=== PATIENT | male | born 1960 | race Caucasian/White ===

== ENCOUNTER 2019-07-27 16:12 | Emergency (ER) | payer SELFPAY ==
[2019-07-27] MEDS ORDERED: NA CHLORIDE 0.9% 1,000 ML ONE ×2 (16:57→17:10)
[2019-07-27 17:16] LABS: Absolute Lymphocytes (CBC) 1.3 K/uL (0.7-4.9); Basophils % 0.5 % (0-1.3); Hematocrit 40.4 % (39.6-49.0); Lymphocytes % 15.8 % (15.3-44.8); MPV 7.8 fL (7.6-11.3); RBC Red Blood Cell Count 4.56 M/uL (4.33-5.43)
[2019-07-27 17:41] LABS: ALT/SGPT 30 U/L (12-78); AST/SGOT 22 U/L (15-37); Albumin 3.4 g/dL (3.4-5.0); Alkaline Phosphatase 108 U/L (45-117); BUN Blood Urea Nitrogen 10 mg/dL (7-18); Bicarbonate 28 mmol/L (21-32); Bilirubin Direct 0.1 mg/dL (0-0.2); Bilirubin Total 0.3 mg/dL (0.2-1.0); Glucose Level 215 mg/dL (74-106); Lipase 100 U/L (73-393); Potassium 3.8 mmol/L (3.5-5.1); Protein, Total 7.3 g/dL (6.4-8.2); Sodium Level 135 mmol/L (136-145)
[2019-07-27] MEDS ORDERED: FENTANYL CITR 100 MCG/2 ML ONE (18:28)
--- NOTE | 2019-07-27 18:38 | RAD REPORT ---
EXAM DESCRIPTION: US - Abdomen Exam Limited - 07/27/2019 5:38 pm CLINICAL HISTORY: Abdominal pain. FINDINGS: The gallbladder wall is not thickened. A gallstone is not seen. The biliary tree is normal caliber. IMPRESSION: Unremarkable gallbladder ultrasound.
--- NOTE | 2019-07-27 18:38 | RAD REPORT ---
EXAM DESCRIPTION: CT - Abdomen W Contrast - 07/27/2019 6:17 pm CLINICAL HISTORY: Abdominal pain COMPARISON: None TECHNIQUE: Computed axial tomography from the diaphragm to the iliac crest was obtained. Oral contra st was given. 100 cc Isovue-[address] scans are performed using dose optimization technique as appropriate and may include automated exposure control or mA/KV adjustment according to patient size. FINDINGS:. The liver, spleen, adrenals, pancreas and kidneys appear unremarkable Mild to moderate thickening of the a stone colon is present with stranding in the adjacent fat Normal appendix No ascites IMPRESSION: Mild to moderate thickening of the wall of the ascending colon probably a colitis
--- NOTE | 2019-07-27 18:44 | EDPHYS ---
Physician Documentation [facility] Name: Spencer Murillo Age: 58 yrs Sex: Male : 1960 Arrival Date: 07/27/2019 Time: 16:14 Bed 6 Private MD: ED Physician Chepe Ramsey HPI: 07/27 17:07 This 58 yrs old Male presents to ER via Ambulatory with complaints of snw Abdominal Pain. 17:07 The patient presents with abdominal pain abdominal distention. Onset: The snw symptoms/episode began/occurred suddenly, 5 day(s) ago, and became persistent. The symptoms do not radiate. Associated signs and symptoms: Pertinent positives: nausea and vomiting, anorexia. The symptoms are described as sharp, steady. Severity of pain: At its worst the pain was moderate. The patient has not experienced similar symptoms in the past. The patient has not recently seen a physician. Historical: - Allergies: 16:28 Levaquin; hb - Home Meds: 16:28 None [Active]; hb - PMHx: 16:28 ADD/ADHD; hb - PSHx: 16:28 Knee surgery; L shoulder; hb - Immunization history:: Adult Immunizations up to date. - Social history:: Smoking status: Patient uses tobacco products, denies chronic smoking, but will smoke occasionally. - Ebola Screening: : No symptoms or risks identified at this time. ROS: 17:06 Constitutional: Negative for fever, chills, and weight loss, Eyes: Negative for injury, snw pain, redness, and discharge, ENT: Negative for injury, pain, and discharge, Neck: Negative for injury, pain, and swelling, Cardiovascular: Negative for chest pain, palpitations, and edema, Respiratory: Negative for shortness of breath, cough, wheezing, and pleuritic chest pain, Back: Negative for injury and pain, : Negative for injury, bleeding, discharge, and swelling, MS/Extremity: Negative for injury and deformity, Skin: Negative for injury, rash, and discoloration, Neuro: Negative for headache, weakness, numbness, tingling, and seizure, Psych: Negative for depression, anxiety, suicide ideation, homicidal ideation, and hallucinations. 17:06 Abdomen/GI: Positive for abdominal pain, nausea and vomiting. Exam: 17:05 Constitutional: This is a well developed, well nourished patient who is awake, alert, snw and in no acute distress. Head/Face: Normocephalic, atraumatic. Eyes: Pupils equal round and reactive to light, extra-ocular motions intact. Lids and lashes normal. Conjunctiva and sclera are non-icteric and not injected. Cornea within normal limits. Periorbital areas with no swelling, redness, or edema. ENT: Nares patent. No nasal discharge, no septal abnormalities noted. Tympanic membranes are normal and external auditory canals are clear. Oropharynx with no redness, swelling, or masses, exudates, or evidence of obstruction, uvula midline. Mucous membranes moist. Neck: Trachea midline, no thyromegaly or masses palpated, and no cervical lymphadenopathy. Supple, full range of motion without nuchal rigidity, or vertebral point tenderness. No Meningismus. Chest/axilla: Normal chest wall appearance and motion. Nontender with no deformity. No lesions are appreciated. Cardiovascular: Regular rate and rhythm with a normal S1 and S2. No gallops, murmurs, or rubs. Normal PMI, no JVD. No pulse deficits. Respiratory: Lungs have equal breath sounds bilaterally, clear to auscultation and percussion. No rales, rhonchi or wheezes noted. No increased work of breathing, no retractions or nasal flaring. Back: No spinal tenderness. No costovertebral tenderness. Full range of motion. Skin: Warm, dry with normal turgor. Normal color with no rashes, no lesions, and no evidence of cellulitis. MS/ Extremity: Pulses equal, no cyanosis. Neurovascular intact. Full, normal range of motion. Neuro: Awake and alert, GCS 15, oriented to person, place, time, and situation. Cranial nerves II-XII grossly intact. Motor strength 5/5 in all extremities. Sensory grossly intact. Cerebellar exam normal. Normal gait. Psych: Awake, alert, with orientation to person, place and time. Behavior, mood, and affect are within normal limits. 17:05 Abdomen/GI: Inspection: distension, that is mild, Bowel sounds: normal, Palpation: moderate abdominal tenderness, in the right upper quadrant. Vital Signs: 16:28 BP 130 / 78; Pulse 88; Resp 16; Temp 98.4; Pulse Ox 100% on R/A; Weight 77.11 kg; hb Height 5 ft. 10 in. (177.80 cm); Pain 7/10; 18:00 BP 123 / 86; Pulse 78; Resp 16; Pulse Ox 96% ; bp 19:26 BP 121 / 77; Pulse 70; Resp 15; Pulse Ox 99% ; bp 16:28 Body Mass Index 24.39 (77.11 kg, 177.80 cm) hb MDM: 16:32 Patient medically screened. snw 18:46 Data reviewed: vital signs, nurses notes. Data interpreted: Pulse oximetry: on room air snw is 100 %. Interpretation: normal. Counseling: I had a detailed discussion with the patient and/or guardian regarding: the historical points, exam findings, and any diagnostic results supporting the discharge/admit diagnosis, the presence of at least one elevated blood pressure reading (>120/80) during this emergency department visit, lab results, radiology results, the need for outpatient follow up, to return to the emergency department if symptoms worsen or persist or if there are any questions or concerns that arise at home. Response to treatment: the patient's symptoms have mildly improved after treatment. Special discussion: Based on the patient's Hx, exam, and Dx evaluation, there is no indication for emergent surgery or inpatient Tx. It is understood by the patient/guardian that if the Sx's persist or worsen they need to return immediately for re-evaluation. Based on the history and exam findings, there is no indication for further emergent testing or inpatient evaluation. I discussed with the patient/guardian the need to see the delivery table feeder for further evaluation of the symptoms. I discussed with the patient/guardian the need to see the primary care provider for further evaluation of the symptoms. 07/27 16:34 Order name: Basic Metabolic Panel; Complete Time: 17:46 snw 07/27 17:47 Interpretation: Within normal limits. snw 07/27 16:34 Order name: CBC with Diff; Complete Time: 17:26 snw 07/27 16:34 Order name: Creatinine for Radiology; Complete Time: 17:46 snw 07/27 16:34 Order name: Hepatic Function; Complete Time: 17:46 snw 07/27 16:34 Order name: Lipase; Complete Time: 17:46 snw 07/27 16:34 Order name: US Abdomen Limited; Complete Time: 18:39 snw 07/27 16:34 Order name: Labs collected and sent; Complete Time: 16:52 snw 07/27 17:51 Order name: CT Abdomen - IV Contrast Only; Complete Time: 18:39 snw Administered Medications: 17:10 Drug: NS 0.9% 1000 ml Route: IV; Rate: 125 ml/hr; Site: right forearm; tr5 19:24 Follow up: IV Status: Completed infusion bp 18:10 Drug: fentaNYL (PF) 25 mcg Route: IVP; Site: right antecubital; bp 19:23 Follow up: Response: No adverse reaction bp 18:53 Drug: Bactrim (160 mg-800 mg (DS) 1 tablet Route: PO; bp 19:23 Follow up: Response: No adverse reaction bp Disposition: 07/27/19 18:43 Discharged to Home. Impression: Infectious gastroenteritis and colitis, unspecified. - Condition is Stable. - Discharge Instructions: Abdominal Pain, Adult, Rehydration, Adult, Colitis. - Prescriptions for Bactrim DS 800- 160 mg Oral Tablet - take 1 tablet by ORAL route every 12 hours for 10 days; 20 tablet. promethazine 25 mg Oral Tablet - take 1 tablet by ORAL route every 6 hours As needed; 20 tablet. - Medication Reconciliation Form, Thank You Letter, Antibiotic Education, Prescription Opioid Use form. - Follow up: Emergency Department; When: As needed; Reason: Worsening of condition. Follow up: Private Physician; When: 2 - 3 days; Reason: Recheck today's complaints, Continuance of care, Re-evaluation by your physician. Addendum: 07/29/2019 07:39 Co-signature as Attending Physician, Chepe Ramsey MD. r n Signatures: Dispatcher [employer] EDMS Haydee Waller, CUFF STITCHER-C CUFF STITCHER-Csnw Chepe Ramsey MD MD rn Baxter, Heather, Jony Mijares RN, RN RN bp Rodriguez, Tommie, RN RN tr5 Corrections: (The following items were deleted from the chart) 07/27 19:28 18:43 07/27/2019 18:43 Discharged to Home. Impression: Infectious gastroenteritis and bp colitis, unspecified. Condition is Stable. Forms are Medication Reconciliation Form, Thank You Letter, Antibiotic Education, Prescription Opioid Use. Follow up: Emergency Department; When: As needed; Reason: Worsening of condition. Follow up: Private Physician; When: 2 - 3 days; Reason: Recheck today's complaints, Continuance of care, Re-evaluation by your physician. snw
--- NOTE | 2019-07-27 18:44 | ER ---
Nurse's Notes [facility] Name: Spencer Murillo Age: 58 yrs Sex: Male : 1960 Arrival Date: 07/27/2019 Time: 16:14 Bed 6 Private MD: Diagnosis: Infectious gastroenteritis and colitis, unspecified Presentation: 07/27 16:26 Presenting complaint: RUQ pain x 5 days. Also reports N/V 4 days ago. Denies fever. hb Transition of care: patient was not received from another setting of care. Onset of symptoms was July 24, 2019. Risk Assessment: Do you want to hurt yourself or someone else? Patient reports no desire to harm self or others. Initial Sepsis Screen: Does the patient meet any 2 criteria? No. Patient's initial sepsis screen is negative. Does the patient have a suspected source of infection? No. Patient's initial sepsis screen is negative. Care prior to arrival: None. 16:26 Method Of Arrival: Ambulatory hb 16:26 Acuity: PROMISE 3 hb Historical: - Allergies: 16:28 Levaquin; hb - Home Meds: 16:28 None [Active]; hb - PMHx: 16:28 ADD/ADHD; hb - PSHx: 16:28 Knee surgery; L shoulder; hb - Immunization history:: Adult Immunizations up to date. - Social history:: Smoking status: Patient uses tobacco products, denies chronic smoking, but will smoke occasionally. - Ebola Screening: : No symptoms or risks identified at this time. Screenin:05 Abuse screen: Denies threats or abuse. Nutritional screening:. Tuberculosis screening: tr5 No symptoms or risk factors identified. Fall Risk None identified. Assessment: 17:05 General: Appears uncomfortable, Behavior is calm, cooperative, appropriate for age. tr5 Pain: Complains of pain in right upper quadrant. Neuro: Level of Consciousness is awake, alert, obeys commands, Oriented to person, place, time, Airport Baggage Screener are equal bilaterally Moves all extremities. Cardiovascular: Heart tones present Capillary refill < 3 seconds. Respiratory: Airway is patent Respiratory effort is even, unlabored, Respiratory pattern is regular, symmetrical. GI: Bowel sounds present X 4 quads. Abd is soft. : No signs and/or symptoms were reported regarding the genitourinary system. EENT: No signs and/or symptoms were reported regarding the EENT system. Derm: No signs and/or symptoms reported regarding the dermatologic system. Musculoskeletal: No signs and/or symptoms reported regarding the musculoskeletal system. 18:30 Reassessment: ALL CURRENT ORDERS COMPLETED, DISPO PENDING. bp 19:24 Reassessment: PT D/C HOME AMBULATORY WITH FAMILY, DX WITH COLITIS. bp Vital Signs: 16:28 BP 130 / 78; Pulse 88; Resp 16; Temp 98.4; Pulse Ox 100% on R/A; Weight 77.11 kg; hb Height 5 ft. 10 in. (177.80 cm); Pain 7/10; 18:00 BP 123 / 86; Pulse 78; Resp 16; Pulse Ox 96% ; bp 19:26 BP 121 / 77; Pulse 70; Resp 15; Pulse Ox 99% ; bp 16:28 Body Mass Index 24.39 (77.11 kg, 177.80 cm) hb ED Course: 16:14 Patient arrived in ED. as 16:19 Haydee Waller FNP-C is [facility]. snw 16:19 Chepe Ramsey MD is Attending Physician. snw 16:27 Triage completed. hb 16:28 Arm band placed on. hb 16:47 Jony Arias, JENNYFER is Primary Nurse. bp 17:04 Initial lab(s) drawn, by me, sent to lab. Inserted saline lock: 22 gauge in right tr5 forearm, using aseptic technique. 17:05 Placed in gown. Bed in low position. Call light in reach. tr5 17:36 Ultrasound completed. Patient tolerated well. sg3 17:38 US Abdomen Limited In Process Unspecified. EDMS 18:18 CT Abdomen - IV Contrast Only In Process Unspecified. EDMS 19:26 No provider procedures requiring assistance completed. IV discontinued, intact, bp bleeding controlled, No redness/swelling at site. Pressure dressing applied. Administered Medications: 17:10 Drug: NS 0.9% 1000 ml Route: IV; Rate: 125 ml/hr; Site: right forearm; tr5 19:24 Follow up: IV Status: Completed infusion bp 18:10 Drug: fentaNYL (PF) 25 mcg Route: IVP; Site: right antecubital; bp 19:23 Follow up: Response: No adverse reaction bp 18:53 Drug: Bactrim (160 mg-800 mg (DS) 1 tablet Route: PO; bp 19:23 Follow up: Response: No adverse reaction bp Outcome: 18:43 Discharge ordered by . kristen 19:26 Discharged to home ambulatory, with family. bp 19:26 Condition: stable 19:26 Discharge instructions given to patient, Instructed on discharge instructions, follow up and referral plans. medication usage, Demonstrated understanding of instructions, follow-up care, medications, Prescriptions given X 2. 19:28 Patient left the ED. bp Signatures: Dispatcher [employer] EDMS Haydee Waller, LANDSCAPE FOREMAN-C LANDSCAPE FOREMAN-Vonda Doherty Heather, RN RN Jony Arias RN RN bp Taya Proctor sg3 Romeo Becker RN RN tr5
[2019-07-27] MEDS ORDERED: SMZ./TMP. 800/160 MG TABLET ONE (18:49)
[2019-07-27 19:40] VITALS: TEMP 98.4
[2019-07-27 19:43] VITALS: BP 121/77; O2SAT 99
== END 2019-07-27 19:28 | disposition home or self-care (01) ==
LOC: ER 16:12
DX: A09 Infectious gastroenteritis and colitis, unspecified (principal); Z72.0 Tobacco use; Z88.1 Allergy status to other antibiotic agents
CPT/HCPCS: 36415; 74160; 76705; 80048; 80076; 83690; 85025; 96361; 96374; 99284; J3010; J7030; Q9967

== ENCOUNTER 2020-08-04 20:23 | Emergency (ER) | payer SELFPAY ==
[2020-08-04 21:33] LABS: Absolute Lymphocytes (CBC) 1.6 K/uL (0.7-4.9); Basophils % 1.5 % (0-1.3); Lymphocytes % 25.1 % (15.3-44.8); MPV 7.7 fL (7.6-11.3); RBC Red Blood Cell Count 4.73 M/uL (4.33-5.43)
[2020-08-04 21:53] LABS: Lipase 171 U/L (73-393); Magnesium 2.2 mg/dL (1.8-2.4); NT PRO-BNP 59 pg/mL (<125); Troponin (Emerg Dept Use Only) < 0.02 ng/mL (0.0-0.045)
[2020-08-04] MEDS ORDERED: NA CHLORIDE 0.9% 1,000 ML ONE (21:54)
[2020-08-04] MEDS ORDERED: NA CHLORIDE 0.9% 250 ML ONE (21:54)
[2020-08-04] MEDS ORDERED: AZITHROMYCIN 500 MG INJ IVPB ONE (21:54)
[2020-08-04] MEDS ORDERED: CEFTRIAXONE 1000 MG/VIAL ONE (21:54)
[2020-08-04] MEDS ORDERED: NA CHLORIDE 0.9% 100 ML ONE (21:54)
[2020-08-04 22:09] LABS: ALT/SGPT 28 U/L (12-78); AST/SGOT 25 U/L (15-37); Albumin 3.5 g/dL (3.4-5.0); Alkaline Phosphatase 111 U/L (45-117); BUN Blood Urea Nitrogen 10 mg/dL (7-18); Bicarbonate 28 mmol/L (21-32); Bilirubin Direct < 0.1 mg/dL (0-0.2); Bilirubin Total 0.2 mg/dL (0.2-1.0); Glucose Level 134 mg/dL (74-106); Potassium 3.9 mmol/L (3.5-5.1); Sodium Level 142 mmol/L (136-145)
--- NOTE | 2020-08-04 22:51 | EDPHYS ---
Physician Documentation [facility] Name: Spencer Murillo Age: 59 yrs Sex: Male : 1960 Arrival Date: 08/04/2020 Time: 20:30 Bed 3 Private MD: BOB Physician Christian Sarah HPI: 08/04 21:00 This 59 yrs old Male presents to ER via Ambulatory with complaints of Back radha Pain, Not Feeling Well. 21:00 The patient presents with pain that is acute, with no known mechanism of injury. The radha symptoms are located in the right subscapular area and right mid back. Onset: The symptoms/episode began/occurred 5 day(s) ago. The pain does not radiate. Associated signs and symptoms: Pertinent positives: fever. The problem was sustained from unknown cause. Modifying factors: The patient symptoms are alleviated by remaining still, the patient symptoms are aggravated by coughing, movement. Severity of symptoms: At their worst the symptoms were mild, moderate, in the emergency department the symptoms are unchanged. The patient has not experienced similar symptoms in the past. Historical: - Allergies: 20:44 Levaquin; ca1 - PMHx: 20:44 ADD/ADHD; Anxiety; Depression; ca1 - PSHx: 20:44 Knee surgery; L shoulder; ca1 - Immunization history:: Adult Immunizations up to date, Flu vaccine is not up to date. - Social history:: Smoking status: Patient reports the use of cigarette tobacco products, smokes one-half pack cigarettes per day. - Family history:: not pertinent. ROS: 21:00 Constitutional: Negative for fever, chills, and weight loss, Eyes: Negative for injury, radha pain, redness, and discharge, ENT: Negative for injury, pain, and discharge, Neck: Negative for injury, pain, and swelling, Cardiovascular: Negative for chest pain, palpitations, and edema, Respiratory: Negative for shortness of breath, cough, wheezing, and pleuritic chest pain, Abdomen/GI: Negative for abdominal pain, nausea, vomiting, diarrhea, and constipation, : Negative for injury, bleeding, discharge, and swelling, MS/Extremity: Negative for injury and deformity, Skin: Negative for injury, rash, and discoloration, Neuro: Negative for headache, weakness, numbness, tingling, and seizure, Psych: Negative for depression, anxiety, suicide ideation, homicidal ideation, and hallucinations, Allergy/Immunology: Negative for hives, rash, and allergies, Endocrine: Negative for neck swelling, polydipsia, polyuria, polyphagia, and marked weight changes, Hematologic/Lymphatic: Negative for swollen nodes, abnormal bleeding, and unusual bruising. 21:00 Back: Positive for decreased range of motion, pain at rest, of the right subscapular area and right mid back. Exam: 21:00 Constitutional: This is a well developed, well nourished patient who is awake, alert, radha and in no acute distress. Head/Face: Normocephalic, atraumatic. Eyes: Pupils equal round and reactive to light, extra-ocular motions intact. Lids and lashes normal. Conjunctiva and sclera are non-icteric and not injected. Cornea within normal limits. Periorbital areas with no swelling, redness, or edema. ENT: Nares patent. No nasal discharge, no septal abnormalities noted. Tympanic membranes are normal and external auditory canals are clear. Oropharynx with no redness, swelling, or masses, exudates, or evidence of obstruction, uvula midline. Mucous membranes moist. Neck: Trachea midline, no thyromegaly or masses palpated, and no cervical lymphadenopathy. Supple, full range of motion without nuchal rigidity, or vertebral point tenderness. No Meningismus. Chest/axilla: Normal chest wall appearance and motion. Nontender with no deformity. No lesions are appreciated. Cardiovascular: Regular rate and rhythm with a normal S1 and S2. No gallops, murmurs, or rubs. Normal PMI, no JVD. No pulse deficits. Abdomen/GI: Soft, non-tender, with normal bowel sounds. No distension or tympany. No guarding or rebound. No evidence of tenderness throughout. Male : Normal genitalia with no discharge or lesions. Skin: Warm, dry with normal turgor. Normal color with no rashes, no lesions, and no evidence of cellulitis. MS/ Extremity: Pulses equal, no cyanosis. Neurovascular intact. Full, normal range of motion. Neuro: Awake and alert, GCS 15, oriented to person, place, time, and situation. Cranial nerves II-XII grossly intact. Motor strength 5/5 in all extremities. Sensory grossly intact. Cerebellar exam normal. Normal gait. Psych: Awake, alert, with orientation to person, place and time. Behavior, mood, and affect are within normal limits. 21:00 Respiratory: the patient does not display signs of respiratory distress, Respirations: normal, Breath sounds: decreased breath sounds, rhonchi, that are mild, are located in both bases. 21:00 Back: pain, that is mild, of the right subscapular area and right mid back, ROM is normal, normal spinal alignment noted, CVA tenderness, is absent, vertebral tenderness, is not appreciated, muscle spasm, is not present. 22:55 ECG was reviewed by the Attending Physician. radha Vital Signs: 20:41 BP 137 / 84; Pulse 85; Resp 17 S; Temp 98.6(O); Pulse Ox 97% on R/A; Weight 77.11 kg ca1 (R); Height 5 ft. 10 in. (177.80 cm) (R); Pain 7/10; 22:07 BP 135 / 84; Pulse 81; Resp 17; Pulse Ox 100% ; rv 23:23 BP 146 / 86; Pulse 79; Resp 16; Temp 98.4; Pulse Ox 100% on R/A; rv 20:41 Body Mass Index 24.39 (77.11 kg, 177.80 cm) ca1 MDM: 20:51 Patient medically screened. radha 21:03 Differential diagnosis: Basilar Pneumonia Cholelithiasis Fatigue Hydronephrosis radha Pyelonephritis sprain, Ureterolithiasis. Data reviewed: vital signs, nurses notes, lab test result(s), EKG, radiologic studies, CT scan, plain films. Data interpreted: secured entrance monitor: rate is 85 beats/min, rhythm is regular, Pulse oximetry: on room air is 97 %. Test interpretation: by ED physician or midlevel provider: ECG, plain radiologic studies. Counseling: I had a detailed discussion with the patient and/or guardian regarding: the historical points, exam findings, and any diagnostic results supporting the discharge/admit diagnosis, lab results, radiology results. 08/04 20:59 Order name: Basic Metabolic Panel [facility] 08/04 20:59 Order name: CBC with Diff [facility] 08/04 20:59 Order name: LFT's [facility] 08/04 20:59 Order name: Magnesium radha 08/04 20:59 Order name: NT PRO-BNP [facility] 08/04 20:59 Order name: Troponin (emerg Dept Use Only) [facility] 08/04 20:59 Order name: Lipase [facility] 08/04 20:59 Order name: COVID-19 [facility] 08/04 20:59 Order name: Influenza Screen (a \T\ B) [facility] 08/04 20:59 Order name: Blood Culture Adult (2) [facility] 08/04 20:59 Order name: Lactate [facility] 08/04 21:00 Order name: Urine Culture [facility] 08/04 21:00 Order name: Basic Metabolic Panel; Complete Time: 22:12 [facility] 08/04 21:00 Order name: CBC with Automated Diff; Complete Time: 22:09 [facility] 08/04 20:59 Order name: XRAY Chest (1 view) [facility] 08/04 20:59 Order name: EKG; Complete Time: 21:01 [facility] 08/04 20:59 Order name: Cardiac monitoring; Complete Time: 21:34 [facility] 08/04 20:59 Order name: CT Aorta for Dissection [facility] 08/04 21:00 Order name: Liver (Hepatic) Function; Complete Time: 22:12 [facility] 08/04 21:50 Order name: Lactate; Complete Time: 22:09 [facility] 08/04 21:53 Order name: Troponin (Emerg Dept Use Only); Complete Time: 22:09 [facility] 08/04 21:53 Order name: NT PRO-BNP; Complete Time: 22:09 [facility] 08/04 21:53 Order name: Magnesium; Complete Time: 22:09 [facility] 08/04 21:53 Order name: Lipase; Complete Time: 22:09 [facility] 08/04 21:59 Order name: Urine Dipstick--Ancillary (enter results) [facility] 08/04 22:00 Order name: CORONAVIRUS [facility] 08/04 23:11 Order name: Influenza Screen (A [facility] 08/04 20:59 Order name: EKG - Nurse/Tech; Complete Time: 22:56 [facility] 08/04 20:59 Order name: IV Saline Lock; Complete Time: 21:34 [facility] 08/04 20:59 Order name: Labs collected and sent; Complete Time: 21:34 [facility] 08/04 20:59 Order name: O2 Per Protocol; Complete Time: 21:34 [facility] 08/04 20:59 Order name: O2 Sat Monitoring; Complete Time: 21:34 [facility] 08/04 21:00 Order name: Urine Dipstick-Ancillary (obtain specimen); Complete Time: 21:59 radha EC:55 Rate is 78 beats/min. Rhythm is regular. QRS [place] is Normal. WI interval is normal. QRS radha interval is normal. QT interval is normal. No Q waves. T waves are Normal. No ST changes noted. Clinical impression: NSR w/ Non-specific ST/T Changes and No evidence of ischemia. Interpreted by me. Reviewed by me. Administered Medications: 21:51 Drug: NS 0.9% 1000 ml Route: IV; Rate: 1 bolus; Site: right forearm; rv 23:00 Follow up: Response: No adverse reaction; IV Status: Completed infusion; IV Intake: ea 1000ml 21:51 Drug: Rocephin 2 grams Route: IV; Rate: per protocol; Site: right forearm; rv 22:14 Follow up: IV Status: Completed infusion rv 23:23 Follow up: Response: No adverse reaction rv 22:14 Drug: Zithromax 500 mg Route: IVPB; Infused Over: 1 hrs; Site: right forearm; rv 23:22 Follow up: IV Status: Completed infusion; IV Intake: 250ml rv Disposition: 08/04/20 22:51 Discharged to Home. Impression: Fever, unspecified, Cough, Urinary tract infection, site not specified. - Condition is Stable. - Discharge Instructions: Fever, Adult, Urinary Tract Infection, Adult, Urinary Tract Infection, Adult, [id number], Tobacco Use Disorder, Cough, Adult, Zano-cd-Syaz, Cough, Adult, Fever, Adult, [id number]. - Prescriptions for Augmentin 875- 125 mg Oral Tablet - take 1 tablet by ORAL route every 12 hours for 10 days; 20 tablet. Ibuprofen 600 mg Oral Tablet - take 1 tablet by ORAL route every 8 hours As needed take with food; 21 tablet. Zithromax Z- Ron 250 mg Oral Tablet - take 1 tablet by ORAL route as directed for 5 days Day 1 - take two (2) tablets one time. Day 2, 3, 4 , 5 take one (1) tablet once daily.; 6 tablet. - Medication Reconciliation Form, Thank You Letter, Antibiotic Education, Prescription Opioid Use form. - Follow up: Private Physician; When: 2 - 3 days; Reason: Recheck today's complaints, Continuance of care, Re-evaluation by your physician. Follow up: Peterson Pimentel MD; When: 2 - 3 days; Reason: Recheck today's complaints, Re-evaluation by your physician. - Problem is new. - Symptoms have improved. Signatures: Dispatcher [employer] Christian Humphreys MD MD cha Vicente, Ronaldo RN RN Tana Ca RN Adamaris Lloyd RN, ea Corrections: (The following items were deleted from the chart) 23:23 22:51 08/04/2020 22:51 Discharged to Home. Impression: Fever, unspecified; Cough; rv Urinary tract infection, site not specified. Condition is Stable. Forms are Medication Reconciliation Form, Thank You Letter, Antibiotic Education, Prescription Opioid Use. Follow up: Private Physician; When: 2 - 3 days; Reason: Recheck today's complaints, Continuance of care, Re-evaluation by your physician. Follow up: Peterson Pimentel; When: 2 - 3 days; Reason: Recheck today's complaints, Re-evaluation by your physician. Problem is new. Symptoms have improved. radha
--- NOTE | 2020-08-04 22:51 | ER ---
Nurse's Notes [facility] Name: Spencer Murillo Age: 59 yrs Sex: Male : 1960 Arrival Date: 08/04/2020 Time: 20:30 Bed 3 Private MD: Diagnosis: Fever, unspecified;Cough;Urinary tract infection, site not specified Presentation: 08/04 20:41 Chief complaint: Patient states: I just don't feel good for about a week now. My back ca1 hurts on the R side where my kidney is. Reports burning with urination, urinary urgency and frequency. Fever yesterday of 101.5F. Coronavirus screen: Client denies travel out of the [place] in the last 14 days. fever, Client presents with at least one sign or symptom that may indicate coronavirus-19. Standard/surgical mask placed on the client. Provider contacted for isolation considerations. Ebola Screen: Patient negative for fever greater than or equal to 101.5 degrees Fahrenheit, and additional compatible Ebola Virus Disease symptoms Patient denies exposure to infectious person. Patient denies travel to an Ebola-affected area in the 21 days before illness onset. No symptoms or risks identified at this time. Initial Sepsis Screen: Does the patient meet any 2 criteria? Does the patient have a suspected source of infection? No. Patient's initial sepsis screen is negative. Risk Assessment: Do you want to hurt yourself or someone else? Patient reports no desire to harm self or others. Onset of symptoms was August 04, 2020. 20:41 Method Of Arrival: Ambulatory ca1 20:41 Acuity: PROMISE 3 ca1 Historical: - Allergies: 20:44 Levaquin; ca1 - PMHx: 20:44 ADD/ADHD; Anxiety; Depression; ca1 - PSHx: 20:44 Knee surgery; L shoulder; ca1 - Immunization history:: Adult Immunizations up to date, Flu vaccine is not up to date. - Social history:: Smoking status: Patient reports the use of cigarette tobacco products, smokes one-half pack cigarettes per day. - Family history:: not pertinent. Screenin:35 Abuse screen: Denies threats or abuse. Denies injuries from another. Nutritional rv screening: No deficits noted. Tuberculosis screening: No symptoms or risk factors identified. Fall Risk None identified. Assessment: 21:35 General: Appears comfortable, Behavior is calm, cooperative. Pain: Complains of pain in rv right mid back. Neuro: Level of Consciousness is awake, alert, obeys commands, Oriented to person, place, time, situation. Cardiovascular: Patient's skin is warm and dry. Respiratory: Airway is patent Respiratory effort is even, unlabored. Derm: Skin is intact. 22:55 Reassessment: Patient and/or family updated on plan of care and expected duration. Pain ea level reassessed. Patient is alert, oriented x 3, equal unlabored respirations, skin warm/dry/pink. Awaiting for IV antibiotics to complete. Vital Signs: 20:41 BP 137 / 84; Pulse 85; Resp 17 S; Temp 98.6(O); Pulse Ox 97% on R/A; Weight 77.11 kg ca1 (R); Height 5 ft. 10 in. (177.80 cm) (R); Pain 7/10; 22:07 BP 135 / 84; Pulse 81; Resp 17; Pulse Ox 100% ; rv 23:23 BP 146 / 86; Pulse 79; Resp 16; Temp 98.4; Pulse Ox 100% on R/A; rv 20:41 Body Mass Index 24.39 (77.11 kg, 177.80 cm) ca1 ED Course: 20:30 Patient arrived in ED. ag3 20:43 Triage completed. ca1 20:44 Arm band placed on right wrist. ca1 20:51 Christian Sarah MD is Attending Physician. radha 21:15 Inserted saline lock: 18 gauge in right forearm, using aseptic technique. rv 21:15 Initial lab(s) drawn, by me, sent to lab. First set of blood cultures drawn by me. rv 21:28 Cecilio Zhao, RN is Primary Nurse. rv 21:33 Second set of blood cultures drawn by me. rv 21:35 Patient has correct armband on for positive identification. athletic monitor on. Pulse rv ox on. NIBP on. 21:43 XRAY Chest (1 view) In Process Unspecified. EDMS 21:46 CT Aorta for Dissection In Process Unspecified. EDMS 22:51 Peterson Pimentel MD is Referral Physician. radha 22:53 EKG done, by ED staff, reviewed by Christian Sarah MD. ds4 23:23 No provider procedures requiring assistance completed. IV discontinued, intact, rv bleeding controlled, No redness/swelling at site. Pressure dressing applied. Administered Medications: 21:51 Drug: NS 0.9% 1000 ml Route: IV; Rate: 1 bolus; Site: right forearm; rv 23:00 Follow up: Response: No adverse reaction; IV Status: Completed infusion; IV Intake: ea 1000ml 21:51 Drug: Rocephin 2 grams Route: IV; Rate: per protocol; Site: right forearm; rv 22:14 Follow up: IV Status: Completed infusion rv 23:23 Follow up: Response: No adverse reaction rv 22:14 Drug: Zithromax 500 mg Route: IVPB; Infused Over: 1 hrs; Site: right forearm; rv 23:22 Follow up: IV Status: Completed infusion; IV Intake: 250ml rv Intake: 23:00 IV: 1000ml; Total: 1000ml. ea 23:22 IV: 250ml; Total: 1250ml. rv Outcome: 22:51 Discharge ordered by . radha 23:23 Discharged to home ambulatory. rv 23:23 Condition: good 23:23 Discharge instructions given to patient, Instructed on discharge instructions, follow up and referral plans. medication usage, Demonstrated understanding of instructions, follow-up care, medications, Prescriptions given X 3. 23:23 Patient left the ED. rv Signatures: Dispatcher [employer] EDMS Christian Sarah MD MD cha Swanson, Donovan ds4 Adamaris Ulloa RN RN ea Vicente, Ronaldo RN Kathi Alejo3 Tana Leon RN JENNYFER ca1 Corrections: (The following items were deleted from the chart) 22:55 22:55 Reassessment: Patient and/or family updated on plan of care and expected ea duration. Pain level reassessed. Patient is alert, oriented x 3, equal unlabored respirations, skin warm/dry/pink. ea
--- NOTE | 2020-08-05 07:12 | EKG ---
Test Date: 2020-08-04 Test Time: 22:50:08 Seat Nailer: ROBBIE MEASUREMENT RESULTS: Intervals: Rate: 78 ID: [id number] QRSD: 84 QT: 366 QTc: 417 [place]: P: 59 ID: [id number] QRS: 46 T: 70 INTERPRETIVE STATEMENTS: Normal sinus rhythm Normal ECG No previous ECG available for comparison Electronically Signed On 08-05-20 07:09:01 DIRECTOR OF BILLING by Alfred Davila
--- NOTE | 2020-08-05 07:56 | RAD REPORT ---
EXAM DESCRIPTION: RAD - Chest Single View - 08/04/2020 9:43 pm CLINICAL HISTORY: Cough;Dyspnea;Fever COMPARISON: Two view chest January 2012 TECHNIQUE: AP portable chest image was obtained 08/04/2020 9:43 pm . FINDINGS: Lung volumes are relatively low compared to the prior study. This accentuates the intersti tial pattern. A minimal interstitial edema or infiltrate could be masked. Stranding is slightly more pronounced in the left base. Again, this is likely atelectasis from low lung volumes. A minimal left base infiltrate cannot be excluded if there are localizing symptoms. Provided history indicates a jimenez williams right-sided pain pattern. Heart and vasculature are normal. No measurable pleural effusion and no pneumothorax. No acute bony abnormality seen. No acute aortic findings suspected. IMPRESSION: Shallow inspiration examination accentuating the interstitial pattern particularly left base. Left base findings are probably atelectasis given the provided history of right-sided symptoms. Correlation is needed with exam findings and history. Early left base pneumonia cannot be excluded ba sed on imaging.
--- NOTE | 2020-08-05 10:21 | RAD REPORT ---
EXAM DESCRIPTION: CT - Angio Aorta For Dissection - 08/05/2020 6:55 am CLINICAL HISTORY: Dyspnea;Fever COMPARISON: None Available. TECHNIQUE: CTA of the chest, abdomen and pelvis performed following IV administration of iodinated c ontrast. 3-D/MIP reformatted images available. FINDINGS: CTA: Normal caliber ascending thoracic aorta, aortic arch, and descending thoracic aorta. No evidence of aneurysm or dissection. Minimal atherosclerotic plaque. The great vessels have normal anatomic configuration. The proximal great vessels are patent to their visualized extent. The abdominal aorta demonstrates normal caliber without aneurysm or dissection. Aortoiliac atheroscle rosis without flow-limiting stenosis. There is in-line flow from the abdominal aorta through the comm on iliac, external iliac, common femoral, and proximal superficial femoral arteries. The profunda fem oral and internal iliac arteries are patent. The celiac artery is patent with normal branch configuration. The superior mesenteric artery is paten t. The inferior mesenteric artery is patent. The renal arteries are patent bilaterally. Single bilate ral renal arteries. No filling defects in the pulmonary arteries. Chest: Thyroid: No abnormalities of the visualized thyroid. Heart: Coronary artery atherosclerosis. No cardiomegaly or significant pericardial effusion. Lymph Nodes: No enlarged mediastinal lymph nodes identified. Esophagus: No abnormalities of the esophagus identified Other: No additional findings. Lungs: Minimal scarring in the right lung base. No confluent airspace consolidation. Pleura: No pleural effusion or pneumothorax. Trachea/Airways: No abnormalities of the visualized trachea or airways. Abdomen: Liver: The liver has normal size and density. No intrahepatic mass or biliary dilatation. Gallbladder: No calcified gallstones. Spleen, Pancreas, and Adrenal Glands: The spleen, pancreas, and adrenal glands are unremarkable. Kidneys: The kidneys have normal size and contour without evidence of solid mass or hydronephrosis. Vasculature: IVC is normal caliber. The portal vein is suboptimally evaluated due to arterial contr ast bolus timing. Likely mixing artifact in the main portal vein. Stomach: The stomach and duodenum have normal course. Other: No free intraperitoneal air. No free fluid or lymphadenopathy. Pelvis: Bladder: Wall thickening of the urinary bladder. Bowel: No dilated loops of large or small bowel. Scattered diverticula of the colon. Appendix: Normal appendix. Pelvis: Enlarged prostate. Bones: Multilevel endplate spondylosis and facet arthropathy throughout the visualized spine. IMPRESSION: 1. No evidence of aortic dissection. No pulmonary embolus. 2. Coronary artery atherosclerosis. 3. Wall thickening of the urinary bladder. This may be related to cystitis or chronic bladder obstruc tion. 4. Enlarged prostate. 5. Diverticulosis without evidence of acute diverticulitis. This exam was performed according to our departmental dose-optimization program, which includes autom ated exposure control, adjustment of the mA and/or kV according to patient size and/or use of iterati ve reconstruction technique. Electronically signed by: Diego Valencia 08/04/2020 10:23 PM CARD PAINTER Due to temporary technical issues with the PACS/Fluency reporting system, reports are being signed by the in house radiologist without review as a courtesy to ensure prompt reporting. The interpreting r adiologist is fully responsible for the content of the report.
[2020-08-06 01:14] LABS: Urine Glucose NEGATIVE (NEG); Urine Specific Gravity 1.025 (1.005-1.030)
[2020-08-06 01:15] LABS: Urine Blood NEGATIVE (NEG); Urine Protein NEGATIVE (NEG); Urine pH 6.5 (5.0-7.0)
== END 2020-08-04 23:23 | disposition home or self-care (01) ==
LOC: ER 20:23
DX: N39.0 Urinary tract infection, site not specified (principal); R05 Cough; Z20.828 Contact with and (suspected) exposure to other viral communicable diseases; F17.210 Nicotine dependence, cigarettes, uncomplicated; Z88.1 Allergy status to other antibiotic agents
CPT/HCPCS: 36415; 71045; 71275; 74175; 80048; 80076; 81003; 82565; 83605; 83690; 83735; 83880; 84484; 85025; 87040; 87086; 87088; 87804; 93005; 96365; 96367; 99284; J0456; J7030; J7050; Q9967; U0003